=== PATIENT | male | born 1960 | race Caucasian/White ===

== ENCOUNTER 2018-08-20 14:32 | Emergency (ER) | payer BC ==
[2018-08-20 14:42] VITALS: BP 134/86
[2018-08-20] MEDS ORDERED: Ketorolac 60 MG/2 ML SDV IM ONE (15:31)
--- NOTE | 2018-08-20 15:36 | EDM.PDOC ---
ED HPI GENERAL MEDICAL PROBLEM - General Chief Complaint: Upper Extremity Injury/Pain Stated Complaint: RT WRIST INJURY Time Seen by Provider: 08/20/18 14:37 Source of Information: Reports: Patient, RN Notes Reviewed History Limitations: Reports: No Limitations - History of Present Illness INITIAL COMMENTS - FREE TEXT/NARRATIVE: Patient is a 58-year-old male who presents to the ED for evaluation of a right wrist injury. The patient states that he was watering his plants this morning, and ended up tripping over the hose and falling. He states that he fell backwards. He developed pain into his right wrist at that time. He did take 600 mg ibuprofen, however this did not help much for pain relief. There is no obvious deformity of the right wrist, but is noting a lot of pain. The patient denies any pain into the right elbow or shoulder. He denies any numbness or tingling at this time. Right Wrist Pain Score (Numeric/FACES): 8 - Related Data Allergies Allergy/AdvReac Type Severity Reaction Status Date / Time No Known Allergies Allergy Verified 08/20/18 14:38 Home Meds: Home Meds . [No Known Home Meds] 08/20/18 [History] Past Medical History - Past Health History Medical/Surgical History: Denies Medical/Surgical History Gastrointestinal History: Reports: GERD Musculoskeletal History: Reports: Osteoarthritis, Other (See Below) Other Musculoskeletal History: Right patella fx. - Past Surgical History Musculoskeletal Surgical History: Reports: Knee Replacement Social & Family History - Tobacco Use Smoking Status *Q: Former Smoker Used Tobacco, but Quit: Yes Month/Year Tobacco Last Used: july - Caffeine Use Caffeine Use: Reports: Coffee Other Caffeine Use: Coffee daily - Recreational Drug Use Recreational Drug Use: No Review of Systems - Review of Systems Review Of Systems: See Below Constitutional: Reports: No Symptoms Eyes: Reports: No Symptoms Ears: Reports: No Symptoms Nose: Reports: No Symptoms Mouth/Throat: Reports: No Symptoms Respiratory: Reports: No Symptoms Cardiovascular: Reports: No Symptoms GI/Abdominal: Reports: No Symptoms Genitourinary: Reports: No Symptoms Musculoskeletal: Reports: Joint Pain (Right dorsal wrist), Joint Swelling ( Right wrist) Skin: Reports: No Symptoms Neurological: Reports: No Symptoms Psychiatric: Reports: No Symptoms ED EXAM, GENERAL - Physical Exam Exam: See Below Exam Limited By: No Limitations General Appearance: Alert, WD/WN, No Apparent Distress Nose: Normal Inspection Throat/Mouth: Normal Inspection Head: Atraumatic, Normocephalic Neck: Normal Inspection Respiratory/Chest: No Respiratory Distress, Lungs Clear, Normal Breath Sounds, No Accessory Muscle Use, Chest Non-Tender Cardiovascular: Normal Peripheral Pulses, Regular Rate, Rhythm, No Murmur Peripheral Pulses: 3+: Radial (L), Radial (R) Extremities: Normal Inspection, Normal Capillary Refill, Limited Range of Motion (of right wrist d/t pain) Neurological: Alert, Oriented, Normal Cognition, Normal Gait, No Motor/Sensory Deficits Psychiatric: Normal Affect, Normal Mood Skin Exam: Warm, Dry, Intact, Normal Color, No Rash Course - Vital Signs Last Recorded V/S: Last Vital Signs Temp 98.3 F 08/20/18 14:38 Pulse 67 08/20/18 14:38 Resp 18 08/20/18 14:38 BP 134/86 08/20/18 14:38 Pulse Ox 97 08/20/18 14:38 - Orders/Labs/Meds Orders: Active Orders 24 hr Category Date Time Status Wrist Comp Min 3V Rt [CR] Stat Exams 08/20/18 14:50 Ordered - Re-Assessments/Exams Free Text/Narrative Re-Assessment/Exam: 08/20/18 15:34 Patient presents to the ED for evaluation of a right wrist injury. I did obtain wrist x-rays, and reviewed these with Dr. Paige, there does not appear to be any sign of an obvious fracture at this time in his wrist or hand bones. Likely a soft tissue injury or sprain in nature. The patient does have a cock- up splint that he bought at [facility] this morning. Have ordered a 60 mg IM Toradol injection for pain relief. Will give general recommendations and discharge home. Departure - Departure Time of Disposition: 15:36 Disposition: Home, Self-Care 01 Condition: Fair Clinical Impression: Wrist pain Qualifiers: Laterality: right Qualified Code(s): M25.531 - Pain in right wrist - Discharge Information *PRESCRIPTION DRUG MONITORING PROGRAM REVIEWED*: No *COPY OF PRESCRIPTION DRUG MONITORING REPORT IN PATIENT IRAIS: No Instructions: Joint Pain, [id number] Referrals: Reji Tamayo Jr, MD [Primary Care Provider] - Additional Instructions: You have been evaluated in the ED for your right wrist pain. Your x-ray demonstrated no acute bony fracture at this time. Please use ice as tolerated to the affected area. You may wear the wrist splint that you purchased for further pain relief. Please take Tylenol 500 mg or ibuprofen 600mg q6 hrs for pain relief. Please do so until you have a tolerable level of pain with activity. Do not exceed 4000mg Tylenol, Do not exceed 3200mg ibuprofen in a 24 hour time period. Please return to ED if your symptoms should change or worsen. - My Orders Last 24 Hours: My Active Orders 08/20/18 14:50 Wrist Comp Min 3V Rt [CR] Stat - Assessment/Plan Last 24 Hours: My Active Orders 08/20/18 14:50 Wrist Comp Min 3V Rt [CR] Stat
--- NOTE | 2018-08-22 08:02 | CR ---
Right wrist: Four views of the right wrist were obtained. Comparison: No previous right wrist exam. Mild joint space narrowing is noted off the distal navicular bone. Mild degenerative change is also noted within the CMC joint of the thumb. No fracture, dislocation or other bony abnormality is identified. Impression: 1. Mild degenerative change. 2. No acute bony abnormality is identified. Diagnostic code #2
== END 2018-08-20 15:50 | disposition home or self-care (01) ==
LOC: JD.ED 14:32
DX: M25.531 Pain in right wrist (principal); M19.90 Unspecified osteoarthritis, unspecified site; Z87.891 Personal history of nicotine dependence
CPT/HCPCS: 73110; 96372; 99283; J1885; 99282

== ENCOUNTER 2022-07-19 07:09 | Emergency (ER) | payer SELFPAY ==
[2022-07-19] MEDS ORDERED: Ondansetron 4 MG/2 ML SDV IVPUSH ONE (07:35)
[2022-07-19] MEDS ORDERED: Sodium Chloride 0.9% 10 ML Syringe FLUSH PRN (07:35)
[2022-07-19] MEDS ORDERED: HYDROmorphone 1 MG/ML Syringe IVPUSH ONE (07:36)
[2022-07-19] MEDS ORDERED: Ketorolac 30 MG/ML SDV IVPUSH ONE (07:37)
[2022-07-19 07:45] LABS: BASOPHILS ABSOLUTE AUTO 0.03 K/mm3 (0.01-0.08); BASOPHILS PERCENT AUTO 0.8 % (0.1-1.2); EOSINOPHILS ABSOLUTE AUTO 0.22 K/mm3 (0.04-0.54); EOSINOPHILS PERCENT AUTO 5.7 (0.8-7.0); HEMATOCRIT 45.2 % (40.1-51.0); HEMOGLOBIN 15.9 gm/dl (13.7-17.5); LYMPHOCYTES ABSOLUTE AUTO 0.82 K/mm3 (1.32-3.57); LYMPHOCYTES PERCENT AUTO 21.1 % (21.8-53.1); MEAN CORPUSCULAR HEMOGLOBIN 33.4 pg (25.7-32.2); MEAN CORPUSCULAR HGB CONC 35.2 g/dl (32.2-35.5); MEAN PLATELET VOLUME 9.2 fl (9.4-12.3); MONOCYTES ABSOLUTE AUTO 0.37 K/mm3 (0.30-0.82); MONOCYTES PERCENT AUTO 9.5 % (5.3-12.2); NEUTROPHILS ABSOLUTE AUTO 2.44 K/mm3 (1.78-5.38); NEUTROPHILS PERCENT AUTO 62.9 % (34.0-67.9); PLATELET COUNT,PLT 126 K/mm3 (163-337); RED BLOOD CELL COUNT 4.76 M/mm3 (4.63-6.08); WHITE BLOOD CELL COUNT,WBC 3.88 K/mm3 (4.23-9.07)
[2022-07-19] MEDS ORDERED: Sodium Chloride 0.9% 1,000 ML IV SCH (07:45)
[2022-07-19 07:59] LABS: A/G RATIO 1.3 (1-2); ANION GAP 14.6 (5-15); BILIRUBIN TOTAL 1.1 mg/dL (0.2-1.0); BUN/CREATININE RATIO 10.8 (14-18); CALCIUM 9.2 mg/dL (8.5-10.1); CREATININE 1.2 mg/dL (0.7-1.3); EST CRCL DRUG DOSING (CG) 67.11 mL/min; POTASSIUM,K 3.6 mEq/L (3.5-5.1)
[2022-07-19 08:31] LABS: APPEARANCE,URINE CLEAR (Clear); BILIRUBIN,URINE NEGATIVE (Negative); COLOR,URINE YELLOW (Yellow); GLUCOSE,URINE NEGATIVE (Negative); KETONES,URINE 2+ (Negative); LEUKOCYTE ESTERASE,URINE NEGATIVE (Negative); NITRITE,URINE NEGATIVE (Negative); OCCULT BLOOD,URINE 2+ (Negative); PH,URINE 5.5 (5.0-8.0); PROTEIN,URINE NEGATIVE (Negative); UROBILINOGEN,URINE 0.2 (0.2-1.0)
[2022-07-19 08:45] LABS: BACTERIA,URINE FEW /hpf (FEW); EPITHELIAL CELLS,URINE NOT SEEN /hpf (0-5); HYALINE CASTS,URINE 0-5 /lpf (0-5); MUCUS,URINE MANY /hpf (FEW); WBC,URINE 0-5 /hpf (0-5)
[2022-07-19] MEDS ORDERED: HYDROmorphone 0.5 MG/0.5 ML Syringe IVPUSH ONE ×2 (09:21→09:46)
[2022-07-19 10:29] VITALS: BP 163/96; PULSE 62
== END 2022-07-19 10:22 | disposition home or self-care (01) ==
LOC: JD.ED 07:09
DX: N13.2 Hydronephrosis with renal and ureteral calculous obstruction (principal); R91.1 Solitary pulmonary nodule
CPT/HCPCS: 36415; 74176; 80053; 81001; 83690; 85025; 96361; 96374; 96375; 96376; 99284; J1170; J1885; J2405; J3490; J7030